=== PATIENT | female | born 1950 | race Caucasian/White ===

== ENCOUNTER 2024-04-02 13:30 | Outpatient (CLI) | payer MEDICARE | END 2024-04-02 13:31 | disposition home or self-care (01) | LOC: CSHDTY/OP 13:30 | PROVIDERS: ATTEND Nurse Practitioner Family | DX: E66.01 Morbid (severe) obesity due to excess calories (principal); I25.10 Atherosclerotic heart disease of native coronary artery without angina pectoris | CPT/HCPCS: 97802 ==

== ENCOUNTER 2024-12-31 14:59 | Outpatient (CLI) | payer OTHER | END 2024-12-31 15:00 | disposition home or self-care (01) | LOC: CSHMAMMO 14:59 | PROVIDERS: ATTEND Family Medicine | DX: Z12.31 Encounter for screening mammogram for malignant neoplasm of breast (principal); Z91.89 Other specified personal risk factors, not elsewhere classified | CPT/HCPCS: 77063; 77067 ==